=== PATIENT | male | born 1950 | race Caucasian/White ===

== ENCOUNTER 2017-07-25 13:49 | Inpatient (IN) | payer OTHER ==
[~2017-07-25 13:49] MED LIST: ASPIRIN 81 MG TAB; HEPARIN 5,000 UNIT/0.5 ML VIAL
[2017-07-25] MEDS: morphine 4 MG/ML VIAL IV (14:05)
[2017-07-25] MEDS: SOD CHLORIDE 0.9% 1,000 ML IV (14:05)
[2017-07-25] MEDS: ONDANSETRON 4 MG INJ IV (14:05)
[2017-07-25] MEDS: HEPARIN 1000 UNITS/ML 10 ML INJ IV (14:06)
[2017-07-25] MEDS: HEPARIN 25000 UNITS/250 ML 250 ML IV (14:06)
[2017-07-25 14:18] LABS: ADD MAN DIFF? NO
[2017-07-25 14:20] LABS: WHITE BLOOD COUNT 5.7 10^3/ul (4.8-10.8)
[2017-07-25 14:20] LABS: BASOPHIL # 0.1 10^3/ul (0.0-0.1); BASOPHILS % 1.2 % (0.0-2.0); EOSINOPHILS % 0.4 % (0.0-7.0); HEMATOCRIT 42.4 % (42.0-52.0); HEMOGLOBIN 14.2 g/dl (14.0-18.0); LYMPHOCYTES # 2.3 10^3/ul (0.8-2.9); LYMPHOCYTES % 39.6 % (15.0-51.0); MEAN CORPUSCULAR HEMOGLOBIN 31.8 pg (29.0-33.0); MEAN CORPUSCULAR HGB CONC 33.5 g/dl (32.0-37.0); MEAN CORPUSCULAR VOLUME 94.9 fl (82.0-101.0); MEAN PLATELET VOLUME 11.6 fl (7.4-10.4); MONOCYTE # 0.6 10^3/ul (0.3-0.9); MONOCYTES % 10.5 % (0.0-11.0); NEUTROPHIL # 2.7 10^3/ul (1.6-7.5); NEUTROPHILS % 47.8 % (39.0-77.0); PLATELET COUNT 136 10^3/UL (140-415); POSITIVE DIFF @See below; RED BLOOD COUNT 4.47 10^6/ul (4.70-6.10); RED CELL DISTRIBUTION WIDTH 14.9 % (11.5-14.5)
[2017-07-25] MEDS: ASPIRIN 81 MG TAB PO (14:30)
[2017-07-25] MEDS ORDERED: NITROGLYCERIN (SL) 0.4 MG TAB SL (14:30)
[2017-07-25 14:35] LABS: PROTIME 14.4 Sec (11.9-14.9); PT RATIO 1.1
[2017-07-25 14:39] LABS: ALANINE AMINOTRANSFERASE 148 IU/L (13-69); ALBUMIN 4.1 g/dl (3.3-4.9); ALBUMIN/GLOBULIN RATIO 1.07; ALKALINE PHOSPHATASE 96 IU/L (42-121); ANION GAP 17 (8-16); ASPARTATE AMINO TRANSFERASE 165 IU/L (15-46); BILIRUBIN,INDIRECT 0.2 mg/dl (0-1.1); BILIRUBIN,TOTAL 0.2 mg/dl (0.2-1.3); BLOOD UREA NITROGEN 28 mg/dl (7-20); CALCIUM 8.9 mg/dl (8.4-10.2); CARBON DIOXIDE 19 mmol/L (21-31); CHLORIDE 111 mmol/L (97-110); CREATININE 0.92 mg/dl (0.61-1.24); GLUCOSE 181 mg/dl (70-220); LIPASE 47 U/L (23-300); POTASSIUM 5.1 mmol/L (3.5-5.1); SODIUM 142 mmol/L (135-144); TOTAL PROTEIN 7.9 g/dl (6.1-8.1)
[2017-07-25] MEDS ORDERED: ALBUTEROL/IPRATROPIUM (NEB) 3 ML AMP NEB (16:30)
[2017-07-25 16:40] LABS: MAGNESIUM 1.9 mg/dl (1.7-2.5)
[2017-07-25] MEDS: SPIRONOLACTONE 25 MG TAB PO (16:53)
[2017-07-25] MEDS: INFLUENZA VIRUS VACCINE 0.5 ML (DISPENSING) IM* (17:30)
[2017-07-25] MEDS: METOPROLOL (XL) 50 MG TAB PO (18:38)
[2017-07-25] MEDS ORDERED: FUROSEMIDE 40 MG INJ IV (19:00)
[2017-07-25] MEDS: FUROSEMIDE 40 MG INJ IV (21:00)
[2017-07-25] MEDS: VALSARTAN 80 MG TAB PO (21:18)
[2017-07-26 06:05] LABS: ADD MAN DIFF? NO
[2017-07-26 06:32] LABS: WHITE BLOOD COUNT 6.3 10^3/ul (4.8-10.8)
[2017-07-26 06:32] LABS: BASOPHIL # 0.1 10^3/ul (0.0-0.1); BASOPHILS % 1.7 % (0.0-2.0); EOSINOPHILS % 0.3 % (0.0-7.0); HEMATOCRIT 45.6 % (42.0-52.0); HEMOGLOBIN 15.9 g/dl (14.0-18.0); LYMPHOCYTES # 2.1 10^3/ul (0.8-2.9); LYMPHOCYTES % 33.4 % (15.0-51.0); MEAN CORPUSCULAR HEMOGLOBIN 32.3 pg (29.0-33.0); MEAN CORPUSCULAR HGB CONC 34.9 g/dl (32.0-37.0); MEAN CORPUSCULAR VOLUME 92.7 fl (82.0-101.0); MEAN PLATELET VOLUME 12.2 fl (7.4-10.4); MONOCYTE # 0.7 10^3/ul (0.3-0.9); MONOCYTES % 11.1 % (0.0-11.0); NEUTROPHIL # 3.3 10^3/ul (1.6-7.5); NEUTROPHILS % 53.2 % (39.0-77.0); PLATELET COUNT 170 10^3/UL (140-415); RED BLOOD COUNT 4.92 10^6/ul (4.70-6.10); RED CELL DISTRIBUTION WIDTH 14.8 % (11.5-14.5)
[2017-07-26 06:50] LABS: ANION GAP 15 (8-16); BLOOD UREA NITROGEN 27 mg/dl (7-20); CALCIUM 8.8 mg/dl (8.4-10.2); CARBON DIOXIDE 23 mmol/L (21-31); CHLORIDE 107 mmol/L (97-110); CREATININE 1.08 mg/dl (0.61-1.24); GLUCOSE 130 mg/dl (70-220); MAGNESIUM 1.6 mg/dl (1.7-2.5); PHOSPHORUS 3.6 mg/dl (2.5-4.9); POTASSIUM 4.3 mmol/L (3.5-5.1); SODIUM 141 mmol/L (135-144)
[2017-07-26 07:23] LABS: HEMOGLOBIN A1C 6.9 % (0-5.9)
[2017-07-26] MEDS: SPIRONOLACTONE 25 MG TAB PO (09:48)
[2017-07-26] MEDS: METOPROLOL (XL) 50 MG TAB PO ×2 (09:48→19:00)
[2017-07-26] MEDS: ASPIRIN 81 MG TAB PO (09:51)
[2017-07-26] MEDS: MAGNESIUM SULFATE 2 GM/50 ML 50 ML IVPB ×2 (09:52→15:43)
[2017-07-26] MEDS: ENOXAPARIN 40 MG/0.4 ML SYG SC (09:54)
[2017-07-26 09:57] LABS: CHOLESTEROL 135 mg/dl (100-200)
[2017-07-26 09:57] LABS: CHOL/HDL RATIO 3.2 RATIO; HDL CHOLESTEROL 41 mg/dl (30-78); LDL CHOLESTEROL,CALCULATED 74 mg/dl; TRIGLYCERIDES 102 mg/dl (0-149)
[2017-07-26 11:51] LABS: HEPATITIS B SURFACE ANTIGEN NEGATIVE (NEGATIVE)
[2017-07-26 12:08] LABS: HEPATITIS B CORE ANTIBODY NEGATIVE (NEGATIVE)
[2017-07-26 13:14] LABS: HEPATITIS C VIRAL ANTIBODY REACTIVE (NEGATIVE)
[2017-07-26] MEDS: VALSARTAN 80 MG TAB PO ×2 (13:44→21:00)
[2017-07-26] MEDS: ACETAMINOPHEN 325 MG TAB PO (13:51)
[2017-07-26] MEDS: PANTOPRAZOLE 40 MG INJ IV (15:31)
[2017-07-26] MEDS: morphine 2 MG INJ IV (15:32)
[2017-07-26] MEDS: NICOTINE (21 MG/24 HR) PATCH TRANSDERM (15:38)
[2017-07-26] MEDS: ALBUTEROL 0.083% (NEB) 2.5 MG/3 ML AMP HHN (16:09)
[2017-07-26] MEDS ORDERED: LIDOCAINE 1% (MDV) 20 ML INJ (16:28)
[2017-07-26] MEDS ORDERED: HEPARIN 1000 UNITS/ML 10 ML INJ ×2 (16:28→16:29)
[2017-07-26] MEDS ORDERED: IOHEXOL 350MG/ML 50 ML BTL (16:28)
[2017-07-26] MEDS ORDERED: VERAPAMIL 5 MG INJ (16:29)
[2017-07-26] MEDS ORDERED: FENTAnyl 50 MCG/ML VIAL (16:29)
[2017-07-26] MEDS ORDERED: NITROGLYCERIN (IC) 100 MCG/ML INJ (16:29)
[2017-07-26] MEDS ORDERED: FUROSEMIDE 40 MG INJ (16:29)
[2017-07-26] MEDS ORDERED: METOPROLOL 5 MG INJ ×4 (16:29)
[2017-07-26] MEDS ORDERED: MIDAZOLAM 1 MG/ML 2 ML INJ (16:29)
[2017-07-26] MEDS ORDERED: LORAZEPAM 2 MG INJ IM (16:30)
[2017-07-26] MEDS ORDERED: morphine 2 MG INJ IV (16:30)
[2017-07-26 16:42] LABS: INR 1.36; PT RATIO 1.3
[2017-07-26] MEDS ORDERED: ALBUTEROL 0.083% (NEB) 2.5 MG/3 ML AMP HHN (18:00)
[2017-07-27] MEDS: PANTOPRAZOLE 40 MG INJ IV (06:07)
[2017-07-27] MEDS: LEVALBUTEROL (NEB) 0.63 MG/3 ML AMP HHN (07:55)
[2017-07-27] MEDS: FUROSEMIDE 20 MG INJ IV (08:20)
[2017-07-27] MEDS: METOPROLOL (XL) 50 MG TAB PO ×2 (08:22→08:33)
[2017-07-27] MEDS: SPIRONOLACTONE 25 MG TAB PO (08:22)
[2017-07-27] MEDS: ASPIRIN 81 MG TAB PO (08:23)
[2017-07-27] MEDS: VALSARTAN 80 MG TAB PO ×2 (08:23→21:00)
[2017-07-27] MEDS: NICOTINE (21 MG/24 HR) PATCH TRANSDERM (08:24)
[2017-07-27] MEDS: ENOXAPARIN 40 MG/0.4 ML SYG SC (08:26)
[2017-07-27 08:40] LABS: ADD MAN DIFF? NO
[2017-07-27 08:42] LABS: BASOPHIL # 0.1 10^3/ul (0.0-0.1); BASOPHILS % 0.8 % (0.0-2.0); EOSINOPHILS % 0.1 % (0.0-7.0); HEMATOCRIT 49.1 % (42.0-52.0); HEMOGLOBIN 16.8 g/dl (14.0-18.0); LYMPHOCYTES # 1.9 10^3/ul (0.8-2.9); LYMPHOCYTES % 21.7 % (15.0-51.0); MEAN CORPUSCULAR HEMOGLOBIN 32.2 pg (29.0-33.0); MEAN CORPUSCULAR HGB CONC 34.2 g/dl (32.0-37.0); MEAN CORPUSCULAR VOLUME 94.1 fl (82.0-101.0); MEAN PLATELET VOLUME 12.4 fl (7.4-10.4); MONOCYTE # 1.1 10^3/ul (0.3-0.9); MONOCYTES % 12.9 % (0.0-11.0); NEUTROPHIL # 5.6 10^3/ul (1.6-7.5); NEUTROPHILS % 64.2 % (39.0-77.0); PLATELET COUNT 141 10^3/UL (140-415); RED BLOOD COUNT 5.22 10^6/ul (4.70-6.10); RED CELL DISTRIBUTION WIDTH 15.7 % (11.5-14.5)
[2017-07-27 08:42] LABS: WHITE BLOOD COUNT 8.8 10^3/ul (4.8-10.8)
[2017-07-27 09:02] LABS: MAGNESIUM 2.4 mg/dl (1.7-2.5)
[2017-07-27 10:03] LABS: ALANINE AMINOTRANSFERASE 210 IU/L (13-69); ALBUMIN 3.8 g/dl (3.3-4.9); ALKALINE PHOSPHATASE 76 IU/L (42-121); ANION GAP 20 (8-16); ASPARTATE AMINO TRANSFERASE 165 IU/L (15-46); BILIRUBIN,INDIRECT 0.1 mg/dl (0-1.1); BILIRUBIN,TOTAL 0.1 mg/dl (0.2-1.3); BLOOD UREA NITROGEN 40 mg/dl (7-20); CARBON DIOXIDE 20 mmol/L (21-31); CHLORIDE 108 mmol/L (97-110); CREATININE 1.28 mg/dl (0.61-1.24); GLUCOSE 186 mg/dl (70-220); SODIUM 143 mmol/L (135-144); TOTAL PROTEIN 7.6 g/dl (6.1-8.1)
[2017-07-27] MEDS: SOD CHLORIDE 0.9% 250 ML IV (15:47)
[2017-07-27 16:16] LABS: FREE THYROXINE INDEX (Calc) 2.25 ug/ml (0.65-3.89); T3 UPTAKE 35.7 % (23.5-40.5); T4 (THYROXINE) 6.3 ug/dl (5.5-11.0)
[2017-07-27] MEDS: GLUCAGON 1 MG INJ IV (16:39)
[2017-07-27] MEDS: ONDANSETRON 4 MG INJ IV (18:05)
[2017-07-27] MEDS: LORAZEPAM 2 MG INJ IV (18:15)
[2017-07-28] MEDS: ONDANSETRON 4 MG INJ IV (01:25)
[2017-07-28] MEDS: PANTOPRAZOLE 40 MG INJ IV (06:02)
[2017-07-28 07:18] LABS: ADD MAN DIFF? NO
[2017-07-28 07:19] LABS: WHITE BLOOD COUNT 6.6 10^3/ul (4.8-10.8)
[2017-07-28 07:19] LABS: BASOPHILS % 0.5 % (0.0-2.0); EOSINOPHILS % 0.3 % (0.0-7.0); HEMATOCRIT 41.7 % (42.0-52.0); HEMOGLOBIN 14.4 g/dl (14.0-18.0); LYMPHOCYTES % 30.6 % (15.0-51.0); MEAN CORPUSCULAR HEMOGLOBIN 32.7 pg (29.0-33.0); MEAN CORPUSCULAR HGB CONC 34.5 g/dl (32.0-37.0); MEAN CORPUSCULAR VOLUME 94.6 fl (82.0-101.0); MEAN PLATELET VOLUME 11.9 fl (7.4-10.4); MONOCYTE # 0.4 10^3/ul (0.3-0.9); MONOCYTES % 6.5 % (0.0-11.0); NEUTROPHIL # 4.1 10^3/ul (1.6-7.5); NEUTROPHILS % 61.9 % (39.0-77.0); PLATELET COUNT 154 10^3/UL (140-415); RED BLOOD COUNT 4.41 10^6/ul (4.70-6.10); RED CELL DISTRIBUTION WIDTH 15.7 % (11.5-14.5)
[2017-07-28 07:46] LABS: ANION GAP 15 (8-16); BLOOD UREA NITROGEN 46 mg/dl (7-20); CALCIUM 8.4 mg/dl (8.4-10.2); CARBON DIOXIDE 25 mmol/L (21-31); CHLORIDE 107 mmol/L (97-110); CREATININE 1.41 mg/dl (0.61-1.24); GLUCOSE 182 mg/dl (70-220); POTASSIUM 4.5 mmol/L (3.5-5.1); SODIUM 142 mmol/L (135-144)
[2017-07-28] MEDS ORDERED: METOPROLOL (XL) 25 MG TAB PO (09:00)
== END 2017-07-28 09:25 | disposition left against medical advice (07) | DRG 287 ==
LOC: E/R 13:49 → SDS 14:30 → ICU 15:36 → MS4 07-26 20:40 → SDS 15:30 → ICU 15:30
PROC: 4A023N7 Measurement of Cardiac Sampling and Pressure, Left Heart, Percutaneous Approach (ICD-10-PCS; principal; 2017-07-25 13:30)
PROC: B211YZZ Fluoroscopy of Multiple Coronary Arteries using Other Contrast (ICD-10-PCS; 2017-07-25 13:30)
DX: I11.0 Hypertensive heart disease with heart failure (principal); E87.2 Acidosis; I42.9 Cardiomyopathy, unspecified; D69.6 Thrombocytopenia, unspecified; E11.65 Type 2 diabetes mellitus with hyperglycemia; I47.1 Supraventricular tachycardia; E83.42 Hypomagnesemia; I50.23 Acute on chronic systolic (congestive) heart failure; I25.10 Atherosclerotic heart disease of native coronary artery without angina pectoris; E86.0 Dehydration; F17.210 Nicotine dependence, cigarettes, uncomplicated; E03.9 Hypothyroidism, unspecified; F15.10 Other stimulant abuse, uncomplicated; Z79.4 Long term (current) use of insulin
CPT/HCPCS: 71045; 76604; 76705; 80048; 80053; 80061; 83036; 83605; 83690; 83735; 84100; 84436; 84443; 84479; 84484; 85025; 85610; 86704; 86803; 87081; 87340; 90686; 93005; 93306; 93458; 94640; 94664; 99285-25; J1940

== ENCOUNTER 2017-08-09 01:05 | Inpatient (IN) | payer OTHER ==
[2017-08-09] MEDS: LORAZEPAM 2 MG INJ IV ×2 (01:57→23:52)
[2017-08-09 02:32] LABS: ADD MAN DIFF? NO
[2017-08-09 02:36] LABS: BASOPHIL # 0.1 10^3/ul (0.0-0.1); NUCLEATED RED BLOOD CELLS% 0.3 /100WBC (0.0-0.0)
[2017-08-09 03:00] LABS: ETHANOL < 10.0 mg/dl
[2017-08-09] MEDS: FUROSEMIDE 40 MG INJ IV ×3 (03:47→18:04)
[2017-08-09] MEDS ORDERED: BISACODYL (EC) 5 MG TAB PO (04:30)
[2017-08-09] MEDS ORDERED: NACL 0.9% 3 ML SYG IV (04:30)
[2017-08-09] MEDS ORDERED: DOCUSATE SODIUM 100 MG CAP PO (04:30)
[2017-08-09] MEDS: METOPROLOL 25 MG TAB PO (09:00)
[2017-08-09 13:52] LABS: AMPHETAMINE/METHAMPHETAMINE Positive (NEGATIVE); BARBITURATES Negative (NEGATIVE)
[2017-08-09 13:53] LABS: BENZODIAZEPINES Negative (NEGATIVE); CANNABINOIDS Negative (NEGATIVE); COCAINE Negative (NEGATIVE); OPIATES Negative (NEGATIVE)
[2017-08-09 14:14] LABS: HEMOGLOBIN 16.2 g/dl (14.0-18.0)
[2017-08-09 14:14] LABS: WHITE BLOOD COUNT 10.8 10^3/ul (4.8-10.8)
[2017-08-09 14:15] LABS: HEMATOCRIT 48.8 % (42.0-52.0); MEAN CORPUSCULAR HEMOGLOBIN 31.8 pg (29.0-33.0); MEAN CORPUSCULAR HGB CONC 33.2 g/dl (32.0-37.0); MEAN CORPUSCULAR VOLUME 95.7 fl (82.0-101.0); MEAN PLATELET VOLUME 12.1 fl (7.4-10.4); PLATELET COUNT 147 10^3/UL (140-415); RED CELL DISTRIBUTION WIDTH 17.1 % (11.5-14.5)
[2017-08-09 14:16] LABS: BASOPHILS % 0.5 % (0.0-2.0); LYMPHOCYTES % 13.4 % (15.0-51.0); MONOCYTES % 7.2 % (0.0-11.0); NEUTROPHILS % 78.3 % (39.0-77.0)
[2017-08-09 14:17] LABS: LYMPHOCYTES # 1.5 10^3/ul (0.8-2.9); MONOCYTE # 0.8 10^3/ul (0.3-0.9); NEUTROPHIL # 8.5 10^3/ul (1.6-7.5)
[2017-08-09 14:21] LABS: INR 1.82; PARTIAL THROMBOPLASTIN TIME 30.2 Sec (25.0-35.0); PROTIME 21.5 Sec (11.9-14.9); PT RATIO 1.7
[2017-08-09] MEDS ORDERED: GLUCAGON 1 MG INJ IM (14:30)
[2017-08-09] MEDS ORDERED: DEXTROSE 50% 50 ML SYRINGE IV ×2 (14:30)
[2017-08-09] MEDS ORDERED: GLUCOSE GEL 15 GRAM TUBE PO ×2 (14:30)
[2017-08-09] MEDS: METOPROLOL 5 MG INJ IV (14:33)
[2017-08-09 14:36] LABS: ANION GAP 23 (8-16); CARBON DIOXIDE 19 mmol/L (21-31); CHLORIDE 109 mmol/L (97-110); GLUCOSE 53 mg/dl (70-220); POTASSIUM 5.2 mmol/L (3.5-5.1)
[2017-08-09 14:37] LABS: BLOOD UREA NITROGEN 45 mg/dl (7-20)
[2017-08-09 14:38] LABS: CALCIUM 9.6 mg/dl (8.4-10.2); CREATININE 1.48 mg/dl (0.61-1.24)
[2017-08-09 14:41] LABS: SODIUM 146 mmol/L (135-144)
[2017-08-09 14:42] LABS: ALANINE AMINOTRANSFERASE 1095 IU/L (13-69); ALKALINE PHOSPHATASE 120 IU/L (42-121); ASPARTATE AMINO TRANSFERASE 1443 IU/L (15-46)
[2017-08-09 14:43] LABS: ALBUMIN 4.3 g/dl (3.3-4.9); ALBUMIN/GLOBULIN RATIO 1.02; BILIRUBIN,INDIRECT 0.9 mg/dl (0-1.1); BILIRUBIN,TOTAL 1.7 mg/dl (0.2-1.3); TOTAL PROTEIN 8.5 g/dl (6.1-8.1)
[2017-08-09 14:44] LABS: B-TYPE NATRIURETIC PEPTIDE 17400 PG/ML (0-125); TROPONIN-I 0.042 ng/ml (0.00-0.12)
[2017-08-09] MEDS: GLUCOSE GEL 15 GRAM TUBE BUCCAL (16:12)
[2017-08-09 16:29] LABS: AMMONIA 13 umol/l (9-30)
[2017-08-09 16:41] LABS: CREATINE KINASE 93 IU/L (23-200)
[2017-08-09 16:42] LABS: ALBUMIN 3.6 g/dl (3.3-4.9); ALBUMIN/GLOBULIN RATIO 1.02; ALKALINE PHOSPHATASE 87 IU/L (42-121); ANION GAP 20 (8-16); BILIRUBIN,INDIRECT 0.8 mg/dl (0-1.1); BILIRUBIN,TOTAL 1.5 mg/dl (0.2-1.3); BLOOD UREA NITROGEN 45 mg/dl (7-20); CARBON DIOXIDE 19 mmol/L (21-31); CHLORIDE 110 mmol/L (97-110); CREATININE 1.42 mg/dl (0.61-1.24); GLUCOSE 66 mg/dl (70-220); POTASSIUM 4.6 mmol/L (3.5-5.1); SODIUM 144 mmol/L (135-144); TOTAL PROTEIN 7.1 g/dl (6.1-8.1)
[2017-08-09 16:54] LABS: CK-MB 2.75 ng/ml (0.0-2.4); TROPONIN-I 0.046 ng/ml (0.00-0.12)
[2017-08-09 17:04] LABS: ALANINE AMINOTRANSFERASE 1267 IU/L (13-69)
[2017-08-09 17:13] LABS: ASPARTATE AMINO TRANSFERASE 1870 IU/L (15-46)
[2017-08-09] MEDS ORDERED: INSULIN ASPART [NOVOLOG] 3 ML PEN SC (17:55)
[2017-08-09] MEDS: INSULIN ASPART [NOVOLOG] 3 ML PEN SC ×2 (17:55→21:00)
[2017-08-09] MEDS: DIGOXIN 500 MCG INJ IV ×2 (18:04→23:52)
[2017-08-09] MEDS ORDERED: INSULIN GLARGINE [LANtus] 3 ML PEN SC (20:00)
[2017-08-09] MEDS ORDERED: METOPROLOL 25 MG TAB PO (21:00)
[2017-08-09] MEDS: METOPROLOL (XL) 25 MG TAB PO (21:12)
[2017-08-09] MEDS: VALSARTAN 80 MG TAB PO (21:12)
[2017-08-10] MEDS: FUROSEMIDE 40 MG INJ IV ×2 (06:38→17:37)
[2017-08-10] MEDS: SPIRONOLACTONE 25 MG TAB PO (08:26)
[2017-08-10] MEDS: METOPROLOL (XL) 25 MG TAB PO (08:27)
[2017-08-10] MEDS: VALSARTAN 80 MG TAB PO ×2 (08:32→20:19)
[2017-08-10 08:36] LABS: ADD MAN DIFF? NO
[2017-08-10 08:42] LABS: BASOPHIL # 0.1 10^3/ul (0.0-0.1); BASOPHILS % 0.7 % (0.0-2.0); EOSINOPHILS % 0.1 % (0.0-7.0); HEMATOCRIT 50.1 % (42.0-52.0); HEMOGLOBIN 17.1 g/dl (14.0-18.0); LYMPHOCYTES # 2.8 10^3/ul (0.8-2.9); LYMPHOCYTES % 25.8 % (15.0-51.0); MEAN CORPUSCULAR HEMOGLOBIN 32.4 pg (29.0-33.0); MEAN CORPUSCULAR HGB CONC 34.1 g/dl (32.0-37.0); MEAN CORPUSCULAR VOLUME 95.1 fl (82.0-101.0); MEAN PLATELET VOLUME 12.5 fl (7.4-10.4); MONOCYTE # 0.7 10^3/ul (0.3-0.9); MONOCYTES % 6.3 % (0.0-11.0); NEUTROPHIL # 7.1 10^3/ul (1.6-7.5); NEUTROPHILS % 66.6 % (39.0-77.0); NUCLEATED RED BLOOD CELLS% 0.2 /100WBC (0.0-0.0); PLATELET COUNT 186 10^3/UL (140-415); RED BLOOD COUNT 5.27 10^6/ul (4.70-6.10); RED CELL DISTRIBUTION WIDTH 17.7 % (11.5-14.5)
[2017-08-10 08:42] LABS: WHITE BLOOD COUNT 10.7 10^3/ul (4.8-10.8)
[2017-08-10] MEDS: INSULIN ASPART [NOVOLOG] 3 ML PEN SC ×4 (08:44→21:00)
[2017-08-10 08:48] LABS: HEMOGLOBIN A1C 7.1 % (0-5.9)
[2017-08-10 09:09] LABS: ALBUMIN 3.3 g/dl (3.3-4.9); ALBUMIN/GLOBULIN RATIO 0.94; ALKALINE PHOSPHATASE 79 IU/L (42-121); ANION GAP 14 (8-16); BILIRUBIN,INDIRECT 0.5 mg/dl (0-1.1); BILIRUBIN,TOTAL 0.5 mg/dl (0.2-1.3); BLOOD UREA NITROGEN 57 mg/dl (7-20); CALCIUM 8.5 mg/dl (8.4-10.2); CARBON DIOXIDE 28 mmol/L (21-31); CHLORIDE 103 mmol/L (97-110); CREATININE 1.52 mg/dl (0.61-1.24); GLUCOSE 180 mg/dl (70-220); POTASSIUM 4.9 mmol/L (3.5-5.1); SODIUM 140 mmol/L (135-144); TOTAL PROTEIN 6.8 g/dl (6.1-8.1)
[2017-08-10 09:10] LABS: TROPONIN-I 0.053 ng/ml (0.00-0.12)
[2017-08-10 09:12] LABS: CHOL/HDL RATIO 3.7 RATIO; HDL CHOLESTEROL 34 mg/dl (30-78); LDL CHOLESTEROL,CALCULATED 79 mg/dl; MAGNESIUM 2.1 mg/dl (1.7-2.5); TRIGLYCERIDES 65 mg/dl (0-149)
[2017-08-10 09:12] LABS: CHOLESTEROL 126 mg/dl (100-200); PHOSPHORUS 5.3 mg/dl (2.5-4.9)
[2017-08-10 09:18] LABS: ALANINE AMINOTRANSFERASE 1322 IU/L (13-69)
[2017-08-10 09:20] LABS: FREE T4 (FREE THYROXINE) 1.58 ng/dl (0.78-2.44)
[2017-08-10] MEDS: INFLUENZA VIRUS VACCINE 0.5 ML SYG IM* (12:24)
[2017-08-10] MEDS: DIGOXIN 500 MCG INJ IV (14:03)
[2017-08-10] MEDS: METOPROLOL (XL) 50 MG TAB PO (20:20)
[2017-08-11] MEDS: ACETAMINOPHEN 325 MG TAB PO (01:43)
[2017-08-11] MEDS: ZOLPIDEM 5 MG TAB PO (03:56)
[2017-08-11] MEDS: FUROSEMIDE 40 MG INJ IV ×2 (06:29→17:06)
[2017-08-11] MEDS: INSULIN ASPART [NOVOLOG] 3 ML PEN SC ×4 (07:55→20:44)
[2017-08-11] MEDS: SPIRONOLACTONE 25 MG TAB PO (08:17)
[2017-08-11] MEDS: VALSARTAN 80 MG TAB PO ×2 (08:17→20:09)
[2017-08-11] MEDS: METOPROLOL (XL) 25 MG TAB PO (08:18)
[2017-08-11 09:27] LABS: ADD MAN DIFF? NO
[2017-08-11 09:31] LABS: WHITE BLOOD COUNT 8.1 10^3/ul (4.8-10.8)
[2017-08-11 09:31] LABS: BASOPHILS % 0.4 % (0.0-2.0); EOSINOPHILS % 0.5 % (0.0-7.0); HEMATOCRIT 50.4 % (42.0-52.0); HEMOGLOBIN 17.5 g/dl (14.0-18.0); LYMPHOCYTES # 2.1 10^3/ul (0.8-2.9); LYMPHOCYTES % 25.8 % (15.0-51.0); MEAN CORPUSCULAR HEMOGLOBIN 32.2 pg (29.0-33.0); MEAN CORPUSCULAR HGB CONC 34.7 g/dl (32.0-37.0); MEAN CORPUSCULAR VOLUME 92.6 fl (82.0-101.0); MEAN PLATELET VOLUME 12.1 fl (7.4-10.4); MONOCYTE # 0.7 10^3/ul (0.3-0.9); MONOCYTES % 8.2 % (0.0-11.0); NEUTROPHIL # 5.2 10^3/ul (1.6-7.5); NEUTROPHILS % 64.9 % (39.0-77.0); PLATELET COUNT 177 10^3/UL (140-415); RED BLOOD COUNT 5.44 10^6/ul (4.70-6.10); RED CELL DISTRIBUTION WIDTH 16.6 % (11.5-14.5)
[2017-08-11 10:14] LABS: ALANINE AMINOTRANSFERASE 892 IU/L (13-69); ALBUMIN 3.4 g/dl (3.3-4.9); ALBUMIN/GLOBULIN RATIO 0.94; ALKALINE PHOSPHATASE 105 IU/L (42-121); ANION GAP 14 (8-16); BILIRUBIN,INDIRECT 0.5 mg/dl (0-1.1); BILIRUBIN,TOTAL 0.5 mg/dl (0.2-1.3); BLOOD UREA NITROGEN 51 mg/dl (7-20); CALCIUM 8.7 mg/dl (8.4-10.2); CARBON DIOXIDE 30 mmol/L (21-31); CHLORIDE 97 mmol/L (97-110); CREATININE 1.19 mg/dl (0.61-1.24); GLUCOSE 131 mg/dl (70-220); MAGNESIUM 1.9 mg/dl (1.7-2.5); POTASSIUM 3.9 mmol/L (3.5-5.1); SODIUM 137 mmol/L (135-144)
[2017-08-11 10:37] LABS: ASPARTATE AMINO TRANSFERASE 776 IU/L (15-46)
[2017-08-11] MEDS: METOPROLOL (XL) 50 MG TAB PO (20:10)
[2017-08-11] MEDS: ALPRAZOLAM 0.25 MG TAB PO (20:12)
[2017-08-11 20:52] LABS: POTASSIUM 4.2 mmol/L (3.5-5.1)
[2017-08-11 20:52] LABS: MAGNESIUM 1.8 mg/dl (1.7-2.5)
[2017-08-11] MEDS ORDERED: ZOLPIDEM 5 MG TAB PO (21:00)
[2017-08-11] MEDS: AL HYDROX/MG HYDROX/SIMETH 30 ML CUP PO (23:16)
[2017-08-12] MEDS ORDERED: NICOTINE POLACRILEX 2 MG GUM BUCCAL (00:30)
[2017-08-12] MEDS ORDERED: NICOTINE (21 MG/24 HR) PATCH TRANSDERM ×2 (02:09→09:00)
[2017-08-12] MEDS: NICOTINE (21 MG/24 HR) PATCH TRANSDERM (02:44)
[2017-08-12] MEDS: ALPRAZOLAM 0.25 MG TAB PO ×2 (03:36→14:58)
[2017-08-12] MEDS: PANTOPRAZOLE (EC) 40 MG TAB PO (05:46)
[2017-08-12] MEDS: FUROSEMIDE 40 MG INJ IV (05:46)
[2017-08-12] MEDS: INSULIN ASPART [NOVOLOG] 3 ML PEN SC ×2 (07:55→12:17)
[2017-08-12] MEDS: ALBUTEROL/IPRATROPIUM (NEB) 3 ML AMP HHN (07:55)
[2017-08-12] MEDS: SPIRONOLACTONE 25 MG TAB PO (08:23)
[2017-08-12 08:24] LABS: ADD MAN DIFF? NO
[2017-08-12] MEDS: METOPROLOL (XL) 25 MG TAB PO (08:25)
[2017-08-12] MEDS: VALSARTAN 80 MG TAB PO (08:25)
[2017-08-12 08:35] LABS: WHITE BLOOD COUNT 6.2 10^3/ul (4.8-10.8)
[2017-08-12 08:35] LABS: BASOPHIL # 0.1 10^3/ul (0.0-0.1); BASOPHILS % 0.8 % (0.0-2.0); EOSINOPHILS # 0.1 10^3/ul (0.0-0.5); EOSINOPHILS % 1.3 % (0.0-7.0); HEMATOCRIT 49.6 % (42.0-52.0); HEMOGLOBIN 17.6 g/dl (14.0-18.0); LYMPHOCYTES # 1.7 10^3/ul (0.8-2.9); LYMPHOCYTES % 28.1 % (15.0-51.0); MEAN CORPUSCULAR HEMOGLOBIN 32.8 pg (29.0-33.0); MEAN CORPUSCULAR HGB CONC 35.5 g/dl (32.0-37.0); MEAN CORPUSCULAR VOLUME 92.5 fl (82.0-101.0); MEAN PLATELET VOLUME 12.4 fl (7.4-10.4); MONOCYTE # 0.7 10^3/ul (0.3-0.9); MONOCYTES % 10.5 % (0.0-11.0); NEUTROPHIL # 3.7 10^3/ul (1.6-7.5); NEUTROPHILS % 58.8 % (39.0-77.0); NUCLEATED RED BLOOD CELLS% 0.3 /100WBC (0.0-0.0); PLATELET COUNT 163 10^3/UL (140-415); RED BLOOD COUNT 5.36 10^6/ul (4.70-6.10); RED CELL DISTRIBUTION WIDTH 16.2 % (11.5-14.5)
[2017-08-12 09:04] LABS: ALANINE AMINOTRANSFERASE 664 IU/L (13-69); ALBUMIN 3.5 g/dl (3.3-4.9); ALBUMIN/GLOBULIN RATIO 0.94; ALKALINE PHOSPHATASE 127 IU/L (42-121); ANION GAP 13 (8-16); ASPARTATE AMINO TRANSFERASE 437 IU/L (15-46); BILIRUBIN,INDIRECT 0.5 mg/dl (0-1.1); BILIRUBIN,TOTAL 0.5 mg/dl (0.2-1.3); BLOOD UREA NITROGEN 42 mg/dl (7-20); CALCIUM 9.1 mg/dl (8.4-10.2); CARBON DIOXIDE 31 mmol/L (21-31); CHLORIDE 96 mmol/L (97-110); CREATININE 0.93 mg/dl (0.61-1.24); GLUCOSE 127 mg/dl (70-220); MAGNESIUM 1.9 mg/dl (1.7-2.5); POTASSIUM 4.3 mmol/L (3.5-5.1); SODIUM 136 mmol/L (135-144); TOTAL PROTEIN 7.2 g/dl (6.1-8.1)
== END 2017-08-12 17:02 | disposition left against medical advice (07) | DRG 292 ==
LOC: E/R 01:05 → TEL 03:46
DX: I11.0 Hypertensive heart disease with heart failure (principal); N17.9 Acute kidney failure, unspecified; I42.9 Cardiomyopathy, unspecified; D68.9 Coagulation defect, unspecified; I47.1 Supraventricular tachycardia; K76.0 Fatty (change of) liver, not elsewhere classified; I50.23 Acute on chronic systolic (congestive) heart failure; F17.200 Nicotine dependence, unspecified, uncomplicated; F15.129 Other stimulant abuse with intoxication, unspecified; E11.9 Type 2 diabetes mellitus without complications; E03.9 Hypothyroidism, unspecified; B19.20 Unspecified viral hepatitis C without hepatic coma; Z91.14 Patient's other noncompliance with medication regimen; Z59.0 Homelessness
CPT/HCPCS: 36415; 71045; 80053; 80061; 80306; 80307; 82140; 82550; 82553; 82962; 83036; 83735; 83880; 84100; 84132; 84439; 84443; 84484; 85025; 85610; 85730; 87522; 90686; 93005; 94664; 96374; 96375; 96376; 99285-25

== ENCOUNTER 2017-08-31 02:34 | Emergency (ER) | payer OTHER ==
[2017-08-31 03:44] LABS: ADD MAN DIFF? NO
[2017-08-31 03:47] LABS: BASOPHIL # 0.1 10^3/ul (0.0-0.1); EOSINOPHILS % 0.5 % (0.0-7.0); HEMATOCRIT 40.2 % (42.0-52.0); HEMOGLOBIN 13.6 g/dl (14.0-18.0); LYMPHOCYTES # 2.5 10^3/ul (0.8-2.9); LYMPHOCYTES % 42.1 % (15.0-51.0); MEAN CORPUSCULAR HEMOGLOBIN 32.7 pg (29.0-33.0); MEAN CORPUSCULAR HGB CONC 33.8 g/dl (32.0-37.0); MEAN CORPUSCULAR VOLUME 96.6 fl (82.0-101.0); MEAN PLATELET VOLUME 12.5 fl (7.4-10.4); MONOCYTE # 0.7 10^3/ul (0.3-0.9); MONOCYTES % 11.4 % (0.0-11.0); NEUTROPHIL # 2.7 10^3/ul (1.6-7.5); NEUTROPHILS % 44.3 % (39.0-77.0); PLATELET COUNT 162 10^3/UL (140-415); RED BLOOD COUNT 4.16 10^6/ul (4.70-6.10); RED CELL DISTRIBUTION WIDTH 17.3 % (11.5-14.5)
[2017-08-31 03:53] LABS: INR 1.01; PROTIME 13.4 Sec (11.9-14.9)
[2017-08-31 03:54] LABS: ALANINE AMINOTRANSFERASE 255 IU/L (13-69); ALBUMIN 3.9 g/dl (3.3-4.9); ALKALINE PHOSPHATASE 99 IU/L (42-121); ANION GAP 16 (8-16); ASPARTATE AMINO TRANSFERASE 298 IU/L (15-46); BILIRUBIN,INDIRECT 0.6 mg/dl (0-1.1); BILIRUBIN,TOTAL 0.6 mg/dl (0.2-1.3); BLOOD UREA NITROGEN 27 mg/dl (7-20); CALCIUM 9.1 mg/dl (8.4-10.2); CARBON DIOXIDE 21 mmol/L (21-31); CHLORIDE 110 mmol/L (97-110); CREATININE 0.95 mg/dl (0.61-1.24); GLUCOSE 159 mg/dl (70-220); PARTIAL THROMBOPLASTIN TIME 25.2 Sec (25.0-35.0); POTASSIUM 5.4 mmol/L (3.5-5.1); SODIUM 142 mmol/L (135-144); TOTAL PROTEIN 7.8 g/dl (6.1-8.1)
[2017-08-31 04:06] LABS: B-TYPE NATRIURETIC PEPTIDE 28100 PG/ML (0-125); TROPONIN-I 0.046 ng/ml (0.00-0.12)
[2017-08-31 04:11] LABS: ETHANOL < 10.0 mg/dl
[2017-08-31] MEDS: ASPIRIN 325 MG TAB PO (04:20)
[2017-08-31] MEDS: FUROSEMIDE 40 MG INJ IV (04:22)
[2017-08-31 06:54] LABS: BARBITURATES Negative (NEGATIVE); BENZODIAZEPINES Negative (NEGATIVE); CANNABINOIDS Negative (NEGATIVE); COCAINE Negative (NEGATIVE); OPIATES Negative (NEGATIVE)
[2017-08-31] MEDS ORDERED: LEVALBUTEROL (NEB) 0.63 MG/3 ML AMP HHN (07:00)
[2017-08-31] MEDS ORDERED: ONDANSETRON 4 MG INJ IV (07:00)
[2017-08-31] MEDS ORDERED: ACETAMINOPHEN 325 MG TAB PO (07:00)
[2017-08-31] MEDS ORDERED: NACL 0.9% 3 ML SYG IV (07:00)
[2017-08-31] MEDS ORDERED: NITROGLYCERIN (SL) 0.4 MG TAB SL (07:00)
[2017-08-31] MEDS ORDERED: IPRATROPIUM (NEB) 0.5 MG/2.5 ML AMP NEB (07:00)
[2017-08-31 07:15] LABS: AMPHETAMINE/METHAMPHETAMINE POSITIVE (NEGATIVE)
[2017-08-31] MEDS: LISINOPRIL 10 MG TAB PO (09:00)
[2017-08-31] MEDS: HEPARIN 5,000 UNIT/0.5 ML VIAL SC (09:00)
== END 2017-08-31 15:56 | disposition left against medical advice (07) ==
LOC: E/R 02:34
DX: I50.9 Heart failure, unspecified (principal); D64.9 Anemia, unspecified; R74.0 Nonspecific elevation of levels of transaminase and lactic acid dehydrogenase [LDH]; I25.10 Atherosclerotic heart disease of native coronary artery without angina pectoris; E11.9 Type 2 diabetes mellitus without complications; I10 Essential (primary) hypertension; E03.9 Hypothyroidism, unspecified
CPT/HCPCS: 36415; 71045; 80053; 80306; 80307; 82962; 83880; 84443; 84484; 85025; 85610; 85730; 96374; 99285-25